=== PATIENT | male | born 1980 | race Caucasian/White ===

== ENCOUNTER 2016-10-23 06:42 | Outpatient (CLI) | payer BC ==
--- NOTE | ~2016-10-23 | OP ---
PATIENT NAME: CELESTE SHAIKH MEDICAL RECORD: [id number] :80 LOCATION:[facility] ADMISSION DATE: SURGEON: RIVER CASTAÑEDA MD DATE OF OPERATION: 10/23/2016 PROCEDURES: 1. PTCA stent RCA. 2. Left heart catheterization. 3. Selective coronary angiography. 4. Left ventriculogram. INDICATION: Angina and coronary artery disease. PROCEDURE PERFORMED: After informed consent was obtained and after a detailed explanation of the risks, benefits as well as alternative therapies, the patient elected to proceed with angiogram and angioplasty. The right radial area was prepped and draped in normal sterile fashion. The right radial artery was cannulated via modified Seldinger technique with placement of 6-American sheath. All catheters exchanged through this sheath. FINDINGS: The left ventriculogram was performed in standard 30-degree NICKERSON view, reveals good cardiac wall motion throughout all segments. Overall ejection fraction estimated at 50%. SELECTIVE CORONARY ANGIOGRAPHY: 1. Left main showed no significant angiographic disease. 2. Left anterior descending has moderate irregularities, but no flow-limiting stenosis. 3. The left circumflex has moderate irregularities, but no flow-limiting stenosis. 4. The right coronary has previously placed stents. There is 75% in-stent restenosis distally. PTCA STENT OF THE RCA: Stent used were 3.0 x 22 mm Integrity taken to 19 atmospheres. Result was 0% residual stenosis. OVERALL IMPRESSION: Successful percutaneous transluminal coronary angioplasty stent of the right coronary artery going from 70% to 75% initial stenosis to 0% residual. TRANSINT:[id number] Voice Confirmation ID: [id number] DOCUMENT ID: [id number] RIVER CASTAÑEDA MD CC: [id number] DICTATION DATE: 10/23/16 1005 OCULAR CARE TECHNICIAN: 10/23/16 1655 DEP CLI 10/23/16 [place] [address]
--- NOTE | ~2016-10-23 | CN ---
PATIENT NAME:CELESTE SHAIKH MEDICAL RECORD: [id number] : 80 LOCATION:[facility] ADMIT DATE: ACCOUNT: [id number] CONSULTING PHYSICIAN: RIVER CASTAÑEDA MD REFERRING PHYSICIAN: EDUARDO PAIGE MD DATE OF CONSULTATION: 10/23/2016 DIAGNOSES: 1. Unstable angina. 2. Coronary artery disease. 3. Previous percutaneous transluminal coronary angioplasty stent 4 years ago in [place], [place]. HISTORY OF PRESENT ILLNESS: This is a gentleman who has had a past history of coronary artery disease, PTCA stent in [place], [place] who presents with 2 days of chest pain, severe today just like that of his previous angina. The stenting was 4 years ago in [place], [place] has not had any cardiac issues since. His EKG is with no acute ST-T abnormalities; however, he continues to have pain and was relieved in the ER with sublingual nitro. PHYSICAL EXAMINATION: GENERAL APPEARANCE: Well-nourished, well-developed, appears stated age. Level of distress, comfortable. PSYCHIATRIC: Mental status, alert, normal affect. Orientation, oriented to time, place and person. EYES: Lids and conjunctiva, noninjected. No discharge, no pallor. ENT: Lips, teeth, gums, normal dentition. Oropharynx, no cyanosis, no pallor. NECK: Carotid arteries, bilateral normal upstroke, no bruits, no thrills. JUGULAR VEINS: No jugular venous pressure or distention. CERVICAL LYMPH NODES: Nontender, nonenlarged. THYROID: Not enlarged. Nontender. No nodules. LUNGS: Respiratory effort, unlabored. CHEST: Normal curvature. No thoracic deformity. No chest wall tenderness. Percussion, resonant. Auscultation, clear. No wheezes, no rales, no rhonchi. CARDIOVASCULAR: Precordial exam, nondisplaced. No heaves or pericardial thrills. Rate and rhythm, regular. Heart sounds, normal S1, normal S2. No S3, no gallop, no rub. Systolic murmur, not heard. Diastolic murmur, not heard. EXTREMITIES: No cyanosis, no edema. Peripheral pulses, full and equal in all extremities, except as noted. No bruits appreciated. ABDOMEN: Soft, nondistended. Normal aorta. No bruit. Nontender. No masses. Liver, nontender, no hepatomegaly. Spleen, nontender, no splenomegaly. MUSCULOSKELETAL: No joint tenderness. No joint swelling. No erythema. NEUROLOGICAL: Normal gait, normal strength, normal tone. SKIN: Warm and dry. REVIEW OF SYSTEMS: The patient reports easy bruising but reports no swollen glands. The patient reports no fever, no night sweats, no significant weight gain, no significant weight loss. No significant exercise tolerance. The patient reports no dry eyes, no irritation, no vision change. Patient reports no difficulty hearing and no ear pain. Patient reports no frequent nose bleeds or nose and sinus problems. Patient reports on arm pain on exertion. No shortness of breath while lying down. No history of heart murmur. Patient reports no cough, no wheezing or coughing up blood. Patient reports no abdominal pain, no vomiting. Normal appetite. No diarrhea and not vomiting blood. No nausea and no constipation. Patient reports no incontinence. No CONSULT REPORT [id number] CELESTE SHAIKH difficulty urinating. No hematuria. No increased frequency. Patient reports no muscle aches. No weakness, no arthralgias, no back pain. No swelling of the extremities. Patient reports no abnormal mole, no jaundice, no rashes. Reports no loss of consciousness. No weakness and no numbness. No seizures, dizziness, or headaches. The patient reports no depression, no sleep disturbance, feeling safe in a relationship and no alcohol abuse. Patient reports on fatigue. Reports no runny nose or sinus pressure. No itching, no hives, and no frequent sneezing. OVERALL IMPRESSION: Angina, just like that of his previous angina in an unstable fashion. We will proceed with coronary angiography. Further care depends upon findings of the angiography. TRANSINT:[id number] Voice Confirmation ID: [id number] DOCUMENT ID: [id number] RIVER CASTAÑEDA MD CC: [id number] DICTATION DATE: 10/23/16 0854 [employer] PRODUCER: 10/23/16 1542 DEP CLI 10/23/16 [facility] [address] [id number]
--- NOTE | ~2016-10-23 | HEMODYNAMI ---
PATIENT:CELESTE SHAIKH MEDICAL RECORD: [id number] : 80 [id number] AD[facility]ION DATE: 10/23/16 Generatedon:10/23/201610:05 Patient name: CELESTE SHAIKH Patient #: [id number] SSN: DO B: 1980 Date of study: 10/23/2016 Page: Of Hemodynamic Procedure Report Patient Data Patient Demographics Procedure consent was obtained First Name: CELESTE Gender: Male Last Name: HAWA : 1980 Patient #: [id number] Age: 36 year(s) Race: Unknown Additional ID: [id number] Past Medical History Allergies: No known allergies Admission Admission Data Admission Date: 10/23/2016 Admission Time: 6:42 Admit Source: Emergency department Height (in.): 75 BSA: 2.61 (m2) Height (cm.): 190.5 BMI: 37.75 (kg/m2) Weight (lbs.): 302 Weight (kg.): 136.98 Lab Results Lab Result Date: 10/23/2016 Lab Result Time: 7:06 Biochemistry Name Units Result Min Max BUN mg/dl 17 --(---*)-- 7 18 Creatinine mg/dl 0.9 --(-*--)-- 0.6 1.3 CBC Name Units Result Min Max Hematocrit % 50.6 --(--*-)-- 42 54 Hemoglobin g/dl 17.6 --(----)*- 13.5 17.5 Procedure Procedure Types Cath Procedure Diagnostic Procedure C [facility] w/Coronaries PCI Procedure Coronary Stent Initial Miscellaneous Procedures Moderate Sedation up to 30 minutes Procedure Description Procedure Date Procedure Date: 10/23/2016 Procedure Start Time: 9:45 Procedure End Time: 10:01 Procedure Staff Name Function Ced Freire MD Performing Physician Raysa Drummond RT Scrub Davian Danielson RN Nurse Mark To RT Monitor Procedure Data Cath Procedure Fluoroscopy Diagnostic fluoroscopy Total fluoroscopy Time: 3.8 time: 3.8 min min Diagnostic fluoroscopy Total fluoroscopy dose: dose: 444.72 mGy 444.72 mGy Contrast Material Contrast Material Type Amount (ml) Isovue 300 146 Entry Location Entry Primary Successful Side Size Upsize Upsize Entry Closure Beltran ccessful Closure Location (Fr) 1 (Fr) 2 (Fr) Remarks Device Remarks Radial Right 6 Fr Mechanical artery Short Compression Estimated blood loss: 10 ml Diagnostic catheters Device Type Used For End Catheter Placement Terumo 5Fr [place] 110cm Procedure catheter Procedure Complications No complications Procedure Medications Medication Administration Route Dosage Oxygen NC 2 l/min Heparin Flush Bag added to field 2 bags (1000units/500ml NS) 0.9% NaCl I.V. 100 ml/hr Fentanyl I.V. 100 mcg Versed I.V. 2 mg Fentanyl I.V. 100 mcg Versed I.V. 2 mg Fentanyl I.V. 100 mcg Versed I.V. 2 mg Fentanyl I.V. 100 mcg Versed I.V. 2 mg Fentanyl I.V. 100 mcg Versed I.V. 2 mg Heparin Bolus I.V. 4000 units Integrilin (Bolus I.V. 11.3 ml 2mg/ml) Hemodynamics Rest BSA: 2.61 (m2) HGB: 17.6 (g/dl) O2 Consumption: Estimated: 310.71 (ml/min) O2 Co nsumption indexed: Estimated:119.05 (ml/min/m) Heart Rate: 59 (bpm) Pressure Samples Time Site Value (mmHg) Purpose Heart Use Rate(bpm) 9:49 AO 154/12(68) Snapshot 86 Snapshots Pre Cath Intra NCS Post Cath Vital Signs Time Heart Resp SPO2 NIBP (mmHg) Rhythm Pain Sedation Rate (ipm) (%) Status Level (bpm) 9:18:51 87 19 97 144/95(118) NSR 0 (11) 10(A) , No pain 9:23:30 66 17 95 108/59(86) NSR 0 (11) 10(A) , No pain 9:27:58 62 20 94 103/68(96) NSR 0 (11) 10(A) , No pain 9:32:26 74 19 94 119/56(80) NSR 0 (11) 10(A) , No pain 9:37:01 79 18 89 100/59(92) NSR 0 (11) 10(A) , No pain 9:41:29 61 17 94 93/52(57) NSR 0 (11) 10(A) , No pain 9:47:07 58 19 87 114/66(100) NSR 0 (11) 10(A) , No pain 9:51:38 71 17 83 107/57(84) NSR 0 (11) 10(A) , No pain 9:56:08 61 19 95 113/61(98) NSR 0 (11) 10(A) , No pain 10:00:36 61 19 98 115/74(97) NSR 0 (11) 10(A) , No pain 10:02:37 73 18 97 116/66(85) NSR 0 (11) 10(A) , No pain Medications Time Medication Route Dose Verified Delivered Reason Notes Effectiveness by by 9:26:49 Oxygen NC 2 Davian Davian Per physician l/min Jagjit Danielson RN RN 9:26:59 Heparin Flush added 2 Davian Davian used for Bag to bags Jagjit Danielson site specialist (1000units/500ml field RN NS) 9:27:21 0.9% NaCl I.V. 100 Davian Davian Per physician ml/hr Jagjit Danielson RN RN 9:38:56 Fentanyl I.V. 100 Davian Davian for sedation mcg Jagjit Danielson RN RN 9:39:03 Versed I.V. 2 mg Davian Davian for sedation Jagjit Danielson RN RN 9:41:01 Fentanyl I.V. 100 Davian Davian for sedation mcg Jagjit Danielson RN RN 9:41:07 Versed I.V. 2 mg Davian Davian for sedation Jagjit Danielson RN RN 9:45:02 Fentanyl I.V. 100 Davian Davian for sedation mcg Jagjit Danielson RN RN 9:45:08 Versed I.V. 2 mg Davian Davian for sedation Jagjit Danielson RN RN 9:48:27 Fentanyl I.V. 100 Davian Davian for sedation mcg Jagjit Danielson RN RN 9:48:33 Versed I.V. 2 mg Davian Davian for sedation Jagjit Danielson RN RN 9:51:05 Fentanyl I.V. 100 Davian Davian for sedation mcg Jagjit Danielson RN RN 9:51:09 Versed I.V. 2 mg Davian Davian for sedation Jagjit Danielson RN RN 9:54:43 Heparin Bolus I.V. 4000 Davian Marcelo for units Jagjit Danielson RN anticoagulation RN 9:55:02 Integrilin I.V. 11.3 Davian Marcelo for wasted (Bolus 2mg/ml) ml Jagjit Danielson RN antiplatelet 8.7mL of RN therapy integrilin bbolus Procedure Log Time Note 8:59:55 Davian Danielson RN sent for patient. Start room use. 8:59:56 Time tracking: Regular hours 9:00:00 Plan of Care:Hemodynamics will remain stable., Cardiac rhythm will remain stable., Comfort level will be maintained., Respiratory function will remain adequate., Patient/ family verbilizes understanding of procedure., Procedure tolerated without complication., Recovers from procedure without complications.. 9:10:38 Patient received from ED to CCL 3 Alert and oriented. Tansferred to table in Supine position. 9:10:39 Warm blankets applied, and anita hugger turned on for patient comfort. 9:10:39 Correct patient and procedure confirmed by team. 9:10:41 Signed procedure consent form obtained from patient. 9:10:41 ECG and BP/O2 sat monitors applied to patient. 9:10:42 Full Disclosure recording started 9:17:03 Vital chart was started 9:23:50 Baseline sample Acquired. 9:23:55 Rhythm: sinus rhythm 9:24:04 H&P Date Dictated: 10/23/2016 ER History on chart.. 9:24:05 Pre-procedure instructions explained to patient. 9:24:05 Pre-op teaching completed and patient verbalized understanding. 9:24:08 Family unavailable. 9:24:12 Patient NPO since Breakfast. 9:24:27 Patient allergic to No known allergies 9:24:32 Is the patient allergic to Iodine/contrast media? No. 9:24:34 Is patient on blood thinner?No 9:24:35 Patient diabetic? No. 9:24:47 Previous problem with sedation/anesthesia? No ? 9:24:49 Snore? Yes 9:24:50 Sleep apnea? No 9:24:51 Deviated septum? No 9:24:52 Opens mouth fully? Yes 9:24:53 Sticks out tongue? Yes 9:24:54 Airway obstruction? No ? 9:24:56 Dentures? No ? 9:25:07 Patient pain scale 0/10 ?. 9:26:23 IV patent on arrival in right hand with 0.9% NaCl at KVO. 9::49 Oxygen 2 l/min NC was administered by Davian Danielson RN; Per physician; ::52 Lab Result : BUN 17 mg/dl 9:: Lab Result : Hemoglobin 17.6 g/dl 9:: Lab Result : Creatinine 0.9 mg/dl 9:: Lab Result : Hematocrit 50.6 % 9::54 Lab results completed and on chart. 9::59 Heparin Flush Bag (1000units/500ml NS) 2 bags added to field was administered by Davian Danielson RN; used for procedure; 9:27:04 Modified Arcadio's test Ulnar < 7 seconds 9:27:08 Right Radial & Right Groin area was prepped with chlora-prep and draped in sterile fashion 9:27:11 Alarms reviewed by R. N. 9:27:12 Sharps counted by scrub and verified by R.N. 9:27:14 Use device set Radial Dx 9:27:21 0.9% NaCl 100 ml/hr I.V. was administered by Davian Danielson RN; Per physician; 9:27:22 Tegaderm 4 x 4 opened to sterile field. 9:27:23 Acist Manifold opened to sterile field. 9:27:24 Acist Hand Control opened to sterile field. 9:27:25 Acist Syringe opened to sterile field. 9:27:26 Medline Cath Pack opened to sterile field. 9:27:26 Bag Decanter opened to sterile field. 9:27:27 Terumo 6Fr Slender Glidesheath opened to sterile field. 9:27:27 St Allen 260cm J .035 wire opened to sterile field. 9:27:45 Patient Weight : 136.98 kg 9::52 Patient Height : 190.5 cm 9:27:52 Admit Source: Emergency department 9:34:48 Zero performed for pressure channel P1 9:38:49 Physician arrived 9:38:49 --------ALL STOP TIME OUT------ 9:38:50 Final Timeout: patient, procedure, and site verified with staff and physician. All members of the team are in agreement. 9:38:51 Right Radial & Right Groin site verified by team. 9:38:54 Physical assessment completed. ASA score P 2 - A patient with mild systemic disease as per Ced Freire MD. 9:38:55 Sedation plan: IV Moderate Sedation Versed, Fentanyl 9:38:56 Fentanyl 100 mcg I.V. was administered by Davian Danielson RN; for sedation; 9:39:03 Versed 2 mg I.V. was administered by Davian Danielson RN; for sedation; 9:41:01 Fentanyl 100 mcg I.V. was administered by Davian Danielson RN; for sedation; 9:41:07 Versed 2 mg I.V. was administered by Davian Danielson RN; for sedation; 9:45:02 Fentanyl 100 mcg I.V. was administered by Davian Danielson RN; for sedation; 9:45:08 Versed 2 mg I.V. was administered by Davian Danielson RN; for sedation; 9:45:48 Procedure started. 9:45:57 Local anesthetic to right radial artery with Lidocaine 2% by Ced Freire MD.INITIAL ACCESS ONLY 9:46:06 A 6 Fr Short sheath was inserted into the Right Radial artery 9:48:27 Fentanyl 100 mcg I.V. was administered by Davian Danielson RN; for sedation; 9:48:33 Versed 2 mg I.V. was administered by Davian Danielson RN; for sedation; 9:48:48 A Terumo 5Fr [place] 110cm catheter was advanced over the wire and used for Procedure. 9:49:11 LV gram done using NICKERSON 9:49:15 Injector settings: Ml/sec: 5, Volume: 15, 9:49:28 EF : 50 % 9:49:37 LCA angiography performed. 9:50:51 RCA angiography performed. 9:51:05 Fentanyl 100 mcg I.V. was administered by Davian Danielson RN; for sedation; 9:51:09 Versed 2 mg I.V. was administered by Davian Danielson RN; for sedation; 9:52:34 Puga Whisper J 300cm 0.014 guide wire opened to sterile field. 9:52:35 Merit BasixCompak Inflation Kit opened to sterile field. 9:52:36 Terumo 6Fr Slender Glidesheath opened to sterile field. 9:53:26 Medtronic Launcher 6Fr AR 2.0 guide catheter opened to sterile field. 9:53:30 Catheter removed. 9:53:38 6 Fr AR 2 guide catheter was inserted over the wire 9:53:41 whisper wire advanced. 9:54:43 Heparin Bolus 4000 units I.V. was administered by Davian Danielson RN; for anticoagulation; 9:55:02 Integrilin (Bolus 2mg/ml) 11.3 ml I.V. was administered by Davian Danielson RN; for antiplatelet therapy; wasted 8.7mL of integrilin bbolus 9:55:39 Wire advanced across lesion. 9:57:47 Inflation Number: 1 A Medtronic Integrity 3.0 X 22 stent was prepped and advanced across the Dist RCA. The stent was deployed at 19 HEATHER for 0:10 (min:sec). 9:57:49 Stent catheter was removed intact over wire. 9:57:50 Wire removed. 9:57:51 Guide catheter removed. 9:58:54 Terumo TR Band Large opened to sterile field. 9:59:06 Sheath removed intact; hemostasis achieved with Mechanical Compression to the Right Radial artery. 9:59:08 Procedure ended.(Physican Out) 9:59:37 Fluoroscopy time 03.80 minutes. 9:59:40 Fluoroscopy dose: 444.72 mGy 9:59:40 Flurop Dose total: 444.72 9:59:44 Contrast amount:Isovue 300 146ml. 9:59:47 Sharps counted by scrub and verified by R.N. 9:59:49 TR band inflated with 12cc of air. 9:59:50 Insertion/operative site no bleeding no hematoma. 9:59:56 Post right radial artery:stable, clean and dry 9:59:58 Post Procedure Pulses reassessed and unchanged 10:00:00 Post-procedure physical assessment completed. ASA score P 2 - A patient with mild systemic disease as per Ced Freire MD. 10:00:03 Post procedure rhythm: unchanged. 10:00:06 Estimated blood loss: 10 ml 10:00:07 Post procedure instruction explained to patient.Patient verbalizes understanding. 10:00:07 Patient needs reinforcement of post procedure teaching. 10:00:27 Procedure type changed to Cath procedure, Diagnostic procedure, [facility], [facility] w/Coronaries, PCI procedure, Coronary Stent Initial, Miscellaneous Procedures, Moderate Sedation up to 30 minutes 10:01:02 Procedure and supply charges have been captured, reviewed, submitted and are correct. 10:01:04 Procedure Complication : No complications 10:01:08 Vital chart was stopped 10:01:08 See physician's report for complete and final results. 10:01:09 Report given to Pre/Post Procedure Room. 10:01:11 Patient transfered to Pre/Post Procedure Room with Stretcher. 10:01:13 Procedure ended. 10:01:13 Full Disclosure recording stopped 10:01:36 End room use (Document Last) Intervention Summary Intervention Notes Time ActionType Lesion and Equipment Action# Pressure Duration Attributes Used 9:57:47 Place stent Dist RCA Medtronic 1 19 00:10 Integrity 3.0 X 22 stent Device Usage Item Name Manufacture Quantity Catalog Hospital Part Current Minimal Lot# / Number Charge Number Stock Stock Serial# Code Tegade 4 1 [id number] 106321 [id number] [id number] 5 x 4 Acist Acist 1 70240 390079 993768 913040 5 Manifold [employer] Inc Acist Hand Acist 1 64526 110310 442715 147923 5 Control Medical Systems Inc Acist Acist 1 54030 089766 124389 482098 20 Syringe Medical Systems Inc Medline Cardinal 1 [id number] 542751 83314 334351 5 Cath Pack Health Bag Microtek 1 2002S 649666 86633 852664 5 [employer]. Terumo 6Fr Terumo 2 [id number] 576329 015277 791395 [address] Allen 1 812779 076195 514025 209894 30 260cm J .035 wire Terumo 5Fr Terumo 1 40-8997 384743 499829 173062 5 [place] 110cm catheter Puga Puga 1 [id number] 858487 216394 794548 5 Whisper J Vascular 300cm 0.014 guide wire Merit Merit 1 [id number] 948464 815450 379212 15 BasixDeep Domain Medical Inflation Kit Medtronic Medtronic 1 [id number] 812157 12609 305618 1 Launcher 6Fr AR 2.0 guide catheter Medtronic Medtronic 1 [id number] 226546 078832 009948 4 [id number] Integrity 3.0 X 22 stent Terumo TR Terumo 1 [id number] 880059 737433 064257 40 Band Large Signature Audit [place] Stage Time Signature Unsigned Intra-Procedure 10/23/2016 Mark To 10:05:40 AM RT(R) Signatures Monitor : Mark To RT Signature : Date : Time : [address] [id number] [facility] [place] [address]
[2016-10-23 07:12] LABS: BASOPHILS 0.4 % (0.0-2.0); EOSINOPHILS 1.8 % (0-7); HEMATOCRIT 50.6 % (42.0-54.0); HEMOGLOBIN 17.6 g/dL (13.5-17.5); IMMATURE GRANULOCYTES 0.9 % (0-5); MCH 33.1 pg (26.0-34.0); MCHC 34.8 g/dL (31.0-37.0); MCV 95.1 fL (80.0-100.0); MEAN PLATELET VOLUME 10.9 fL (7.4-10.4); MONOCYTES 7.5 % (2-11); NEUTROPHILS 72.4 % (40-80); PLATELET COUNT 169 10x3/uL (130-400); RBC 5.32 10x6/uL (4.20-6.10); RDW 13.3 % (11.5-14.5); WBC 8.1 10x3/uL (4.8-10.8)
[2016-10-23 07:27] LABS: ALBUMIN 3.5 g/dL (3.4-5.0); ALKALINE PHOSPHATASE 66 U/L (46-116); ALT (SGPT) 21 U/L (10-68); BILIRUBIN - TOTAL 0.29 mg/dL (0.2-1.3); CALC OSMOLALITY 285 mosm/kg (275-300); CALCIUM 8.6 mg/dL (8.5-10.1); CARBON DIOXIDE 28.8 mmol/L (21.0-32.0); CHLORIDE - SERUM 104 mmol/L (98-107); CREATININE - SERUM 0.9 mg/dL (0.6-1.3); GLUCOSE 145 mg/dL (74-106); POTASSIUM - SERUM 4.1 mmol/L (3.5-5.1); SODIUM 141 mmol/L (136-145); UREA NITROGEN 17 mg/dL (7-18); eGFR NON AFRICAN AMERICAN > 90 mL/min (90-120)
[2016-10-23 07:38] LABS: CHOL - HDL RATIO 6.2 ratio (2.3-4.9); CHOLESTEROL, TOTAL 199 mg/dL (0-200); CKMB 0.3 U/L (0.0-3.6); CREATINE KINASE 60 UL (21-232); HDL CHOLESTEROL 32 mg/dL (32-96); LDL CHOLESTEROL 154 mg/dL (0-100); LDL-HDL RATIO 4.8 ratio (1.5-3.5); TRIGLYCERIDE 68 mg/dL (30-200)
[2016-10-23 07:43] LABS: TROPONIN-I < 0.017 ng/mL (0.000-0.060)
[2016-10-23] MEDS ORDERED: PLAVIX75 MG PO (10:26)
[2016-10-23] MEDS ORDERED: BAYER CHEWABLE81 MG PO (10:26)
--- NOTE | 2016-10-23 10:43 | NUR ---
1035 SITTING UP TALKING WITH HIS COWORKER, ALL VITALS WNL. R WRIST TR BAND C/D/I WITH NO HEMATOMA OR BLEEDING. PULSES PALP X 4.
--- NOTE | 2016-10-23 11:45 | NUR ---
1105 SLEEPING, ALL VITALS WNL. R WRIST TR BAND C/D/I WITH NO HEMATOMA OR BLEEDING.
--- NOTE | 2016-10-23 11:57 | NUR ---
SITTING UP IN BED EATING TURKEY SANDWICH, WITH NO NAUSEA. R WRIST REMAINS C/D/I WITH NO HEMATOMA OR BLEEDING. DENIES CHEST PAIN. WILL CONTINUE TO MONITOR CLOSELY.
--- NOTE | 2016-10-23 12:24 | NUR ---
1220 PT HAS TOLERATED SANDWICH AND PO FLUIDS WITH NO C/O NAUSEA. TR BAND TO RIGHT WRIST IS CDI WITH NO BLEEDING OR HEMATOMA NOTED. PT DENIES ANY C/O AT THIS TIME. CALL LIGHT IN REACH.
--- NOTE | 2016-10-23 13:46 | NUR ---
1330 RELEASED 4CC AIR FROM R WRIST TR BAND. PIV REMOVED FROM LEFT HAND. 1350 UP TO BEDSIDE TO DRESS WITH ASSIST FROM .
--- NOTE | 2016-10-23 14:11 | NUR ---
D/C INSTRUCTIONS DISCUSSED WITH PATIENT AND AT BEDSIDE. TR BAND REMOVED FROM R WRIST. TEGADERM AND COTTON BALL APPLIED. WHEELED OUT VIA WHEELCHAIR BY CATH TEAM.
== END 2016-10-23 14:14 | disposition home or self-care (01) ==
LOC: D.ER 06:42 → D.OPS 06:42 → EDSTATUS 09:00 → D.OPS 14:14
PROVIDERS: Family Medicine
DX: I25.110 Atherosclerotic heart disease of native coronary artery with unstable angina pectoris (principal); T82.855A Stenosis of coronary artery stent, initial encounter